=== PATIENT | male | born 2000 | race Two or more races ===

== ENCOUNTER 2022-08-17 07:48 | Day surgery (SDC) | payer MEDICAID ==
[~2022-08-17] VITALS: Ht 193 cm; Wt 127.0 kg
[2022-08-17] MEDS ORDERED: ceFAZolin 1GM/50ML 100 ML IV ONE (07:58)
[2022-08-17] MEDS ORDERED: MIDAZOLAM HCL 2MG/2ML 2ml VIAL (1mg/ml) ONE (08:07)
[2022-08-17] MEDS ORDERED: MEPERIDINE HCL (25 MG/ML) 1ML VIAL ONE (08:07)
[2022-08-17] MEDS ORDERED: fentaNYL CITRATE 100 MCG/2 ML VL ONE (08:07)
[2022-08-17] MEDS ORDERED: PROPOFOL 10 MG/ML 20 ML IV ONE (08:08)
[2022-08-17] MEDS ORDERED: NEOSTIGMINE 1 MG/ML INJ (10mg/10ML VIAL) ONE (08:08)
[2022-08-17] MEDS ORDERED: GLYCOPYRROLATE 0.2 MG/ML 1ML VIAL ONE (08:08)
[2022-08-17] MEDS ORDERED: ROCURONIUM 10MG/ML 10ML VIAL IV ONE (08:08)
[2022-08-17] MEDS ORDERED: DexAMETHasone SOD PHOS 10MG/1ML VIAL INJ ONE (08:08)
[2022-08-17] MEDS ORDERED: ONDANSETRON HCL 4 MG/2 ML VIAL ONE (08:08)
[2022-08-17] MEDS ORDERED: SODIUM CHLORIDE LOCK 10 ML ONE (08:08)
[2022-08-17] MEDS ORDERED: MORPHINE SULFATE 4 MG/ML SYR/VIAL IV PRN (09:30)
[2022-08-17] MEDS ORDERED: HYDROmorphone HCL 2 MG/ML VL/or syr IV PRN ×2 (09:30)
[2022-08-17] MEDS ORDERED: METOCLOPRAMIDE HCL 5MG/ml INJ 2ml VIAL IV PRN (09:30)
[2022-08-17] MEDS ORDERED: EPINEPHrine HCL 1 MG/1 ML AMP ONE ×3 (10:16→11:53)
[2022-08-17] MEDS ORDERED: CLINDAMYCIN 600MG IV 50 ML IV ONE (10:22)
[2022-08-17] MEDS ORDERED: BUPIVACAINE 0.5% P/F INJ 10 ML VIAL ONE (11:01)
[2022-08-17] MEDS ORDERED: HYDROmorphone HCL 2 MG/ML VL/or syr ONE (13:11)
[2022-08-17 14:00] VITALS: BP 148/83
== END 2022-08-17 14:34 | disposition home or self-care (01) ==
LOC: SUR 07:48 → EDBD 09:00 → SUR 14:34
PROVIDERS: ATTEND Orthopaedic Surgery Sports Medicine
DX: S43.431A Superior glenoid labrum lesion of right shoulder, initial encounter (principal); X58.XXXA Exposure to other specified factors, initial encounter; Y93.89 Activity, other specified; Y92.89 Other specified places as the place of occurrence of the external cause; Y99.8 Other external cause status
CPT/HCPCS: 29807; C1713; J0171; J0690; J1100; J1170; J2175; J2250; J2405; J2704; J3010; J3490; U0003; A4565